=== PATIENT | male | born 1965 | race Native Hawaiian/Other Pacific Islander ===

== ENCOUNTER 2022-08-22 13:03 | Outpatient (CLI) | payer OTHER | END 2022-08-22 18:54 | disposition home or self-care (01) | LOC: US 13:03 | PROVIDERS: ATTEND Internal Medicine | DX: E05.80 Other thyrotoxicosis without thyrotoxic crisis or storm (principal) ==

== ENCOUNTER 2022-09-06 11:12 | Outpatient (CLI) | payer OTHER | END 2022-09-06 22:28 | disposition home or self-care (01) | LOC: RAD 11:12 | PROVIDERS: ATTEND Internal Medicine | DX: M54.2 Cervicalgia (principal); M25.511 Pain in right shoulder ==